=== PATIENT | male | born 1980 ===

== ENCOUNTER 2019-08-09 19:56 | Emergency (ER) | payer OTHER ==
[2019-08-09 20:23] LABS: Bilirubin Small (Negative); Blood, Urine Trace (Negative); Glucose, Urine (Dipstick) Negative (Negative); Leukocyte Negative (Negative); Nitrite Negative (Negative); Protein, Urine (Dipstick) Trace mg/dL (Neg-Trace)
[2019-08-09 20:24] LABS: Clarity Hazy (Clear)
[2019-08-09 20:32] LABS: RBC/HPF 0-3 HPF (0-3); Squamous Epithelial 0-3 HPF (0-3); WBC/HPF 0-3 HPF (0-3)
[2019-08-09 20:33] LABS: Bacteria/HPF Rare-Few HPF (None Seen); Mucous/LPF 1+ LPF (<2+)
[2019-08-09 20:38] LABS: #Basophils 0.1 thou/uL (0.0-0.2); #Eosinphils 0.1 thou/uL (0.0-0.7); #Monocytes 0.8 thou/uL (0.11-0.59); #Neutrophils 6.7 thou/uL (1.40-6.50); %Basophils 0.7 % (0.0-1.0); %Eosinophils 1.1 % (0.0-10.0); %Lymphocytes 34.4 % (21.0-51.0); %Monocytes 7.1 % (0.0-10.0); %Neutrophils 56.7 % (42.0-75.0); Hemoglobin 14.8 g/dL (14.0-18.0); Mean Corpuscular HGB CONC 33.1 g/dL (32.0-36.0); Mean Corpuscular Hemoglobin 29.2 pg (27.0-31.0); Mean Corpuscular Volume 88.1 fL (78.0-98.0); Mean Platelet Volume 6.4 fL (7.4-10.4); Platelet Count 272 thou/uL (130-400); RBC Distribution Width 12.1 % (11.5-14.5); Red Blood Cell (RBC) Count 5.07 mill/uL (4.70-6.10); White Blood Cell (WBC) Count 11.8 thou/uL (4.8-10.8)
[2019-08-09] MEDS ORDERED: diphenhydrAMINE 12.5 MG/5 ML UDCUP ONE (20:40)
[2019-08-09] MEDS ORDERED: Morphine 10 MG/ML VIAL ONE (20:40)
[2019-08-09] MEDS ORDERED: diphenhydrAMINE 50 MG/ML VIAL ONE (20:41)
[2019-08-09 20:51] LABS: ALT (SGPT) 17 U/L (8-55); AST (SGOT) 13 U/L (5-34); Albumin 4.3 g/dL (3.5-5.0); Alkaline Phosphatase 90 U/L (40-110); Anion Gap 14 mmol/L (10-20); BUN (Urea Nitrogen) 8 mg/dL (8.9-20.6); Bilirubin, Total 0.7 mg/dL (0.2-1.2); Calc. Creatinine Clearance 0 mL/min (70-130); Calcium 9.5 mg/dL (7.8-10.44); Carbon Dioxide 24 mmol/L (22-29); Chloride 106 mmol/L (98-107); Estimated GFR-MDRD Greater than 90; Globulin 3.7 g/dL (2.4-3.5); Glucose 119 mg/dL (70-105); Lipase 13 U/L (8-78); Potassium 3.5 mmol/L (3.5-5.1); Sodium 140 mmol/L (136-145)
[2019-08-09] MEDS ORDERED: metroNIDAZOLE 250 MG TAB ONE (20:51)
[2019-08-09] MEDS ORDERED: Ciprofloxacin 500 MG TAB ONE (20:51)
--- NOTE | 2019-08-09 21:27 | CT ---
CT ABDOMEN AND PELVIS WITH CONTRAST: 08/09/[address] of the abdomen and pelvis was performed for evaluation of lower abdominal pain with guardin g and rebound. Axial slices were acquired after giving IV contrast. Coronal and sagittal reconstructi ons were then done. The lung bases are clear. The liver, spleen, pancreas, gallbladder, adrenal glands, kidneys and abdom inal aorta all appear normal. There is an area of haziness over the upper sigmoid colon before it joins with the descending colon i n the left lower quadrant. The findings suggest mild diverticulitis. There are a few diverticula pres ent. No free air was seen. No free fluid was noted. A few loops of proximal small bowel are minimally dilated and fluid filled which is a nonspecific finding. The appendix is identified and appears norm al. CT of the pelvis was mainly remarkable for the inflammatory changes around the upper sigmoid region. No free fluid, mass or other acute changes were seen. IMPRESSION: Findings consistent with mild diverticulitis of the upper sigmoid colon. Findings discussed with Dr. Avila at 2049 on 08/09/19. POS: HOME
== END 2019-08-09 21:55 | disposition home or self-care (01) ==
LOC: BURERS 19:56
DX: K57.32 Diverticulitis of large intestine without perforation or abscess without bleeding (principal); F17.210 Nicotine dependence, cigarettes, uncomplicated
CPT/HCPCS: 74177; 80053; 81003; 81015; 83690; 84484; 85025; 94760; 96361; 96374; 96375; J1200; J2270; Q0163